=== PATIENT | female | born 1935 | race Caucasian/White ===

== ENCOUNTER 2016-08-22 12:47 | Emergency (ER) | payer MEDICARE ==
[2016-08-22 15:16] LABS: HEMOGLOBIN 12.8 gm/dl (12.3-15.3); RED BLOOD COUNT 4.43 M/UL (4.00-5.10); WHITE BLOOD COUNT 13.6 K/UL (4.5-11.0)
[2016-08-22 15:38] LABS: BUN/CREATININE RATIO 54 (0-10)
== END 2016-08-22 18:32 | disposition home or self-care (01) ==
LOC: ER1 12:47
PROVIDERS: Student in an Organized Health Care Education/Training Program
DX: J40 Bronchitis, not specified as acute or chronic (principal); R73.9 Hyperglycemia, unspecified; I10 Essential (primary) hypertension; J45.909 Unspecified asthma, uncomplicated; Z90.49 Acquired absence of other specified parts of digestive tract
CPT/HCPCS: 36415; 71010; 80053; 82550; 82553; 83874; 83880; 84484; 85025; 93005; 94664; 99284

== ENCOUNTER → 2016-08-30 | Outpatient (CLI) | payer MEDICARE | LOC: RAD 16:04 | DX: R05 Cough (principal); R06.02 Shortness of breath | CPT/HCPCS: 71020 ==

== ENCOUNTER 2016-09-01 16:15 | Emergency (ER) | payer MEDICARE ==
[2016-09-02 00:20] LABS: HEMOGLOBIN 11.4 gm/dl (12.3-15.3); RED BLOOD COUNT 3.99 M/UL (4.00-5.10); WHITE BLOOD COUNT 13.7 K/UL (4.5-11.0)
[2016-09-02 00:43] LABS: BUN/CREATININE RATIO 33 (0-10)
== END 2016-09-02 01:55 | disposition home or self-care (01) ==
LOC: ER1 16:15
PROVIDERS: Emergency Medicine
DX: R05 Cough (principal); J18.9 Pneumonia, unspecified organism; R91.8 Other nonspecific abnormal finding of lung field
CPT/HCPCS: 36415; 71010; 80053; 82550; 82553; 83605; 83874; 83880; 84484; 85025; 85610; 85730; 93005; 99284

== ENCOUNTER 2021-03-08 21:04 | Emergency (ER) | payer MEDICARE ==
[2021-03-08 22:37] LABS: HEMOGLOBIN 13.3 gm/dl (12.3-15.3); RED BLOOD COUNT 4.54 M/UL (4.00-5.10)
[2021-03-08 23:02] LABS: BUN/CREATININE RATIO 22 (0-10)
== END 2021-03-09 03:30 | disposition home or self-care (01) ==
LOC: ER1 21:04
PROVIDERS: Physician Assistant
DX: R00.2 Palpitations (principal); Z20.822 Contact with and (suspected) exposure to COVID-19; K21.9 Gastro-esophageal reflux disease without esophagitis; I10 Essential (primary) hypertension; Z90.49 Acquired absence of other specified parts of digestive tract
CPT/HCPCS: 0240U; 71045; 80053; 82550; 82553; 83874; 83880; 84484; 85025; 93005; 93242; 99285

== ENCOUNTER → 2021-11-09 | Outpatient (CLI) | payer MEDICARE | LOC: HEART 5 09:30 | DX: R06.02 Shortness of breath (principal); R00.0 Tachycardia, unspecified; I08.3 Combined rheumatic disorders of mitral, aortic and tricuspid valves; I27.20 Pulmonary hypertension, unspecified | CPT/HCPCS: 93306 ==